=== PATIENT | male | born 1995 | race Two or more races ===

== ENCOUNTER 2019-09-12 14:49 | Emergency (ER) | payer OTHER ==
[2019-09-12 15:08] VITALS: TEMP 98.2; BMI 25.0
[2019-09-12] MEDS ORDERED: FAMOTIDINE 20 MG/50 ML IVPB 20 MG/50 ML MG IVPB ONE ×2 (17:36→17:55)
[2019-09-12] MEDS ORDERED: ONDANSETRON 4 MG/2 ML VIAL IVPUSH ONE ×2 (17:36→19:36)
[2019-09-12] MEDS ORDERED: SODIUM CHLORIDE 0.9% 500 ML INFUS.BAG IV ONE (17:36)
[2019-09-12] MEDS ORDERED: ONDANSETRON 4 MG/2 ML VIAL ONE ×2 (17:54→19:43)
--- NOTE | 2019-09-12 18:04 | PDOC ---
History of Present Illness - General History Source: Patient Exam Limitations: No Limitations - History of Present Illness Initial Comments: 09/12/19 17:57 Patient is a 24 year old male with no pmhx c/o nausea and vomiting since last night. States he has been vomiting all day, with some diarrhea today. Reports that he went out drinking then developed symptoms he also complains of epigastric burning pain which is 10/10, continuous. He has had prior episodes of this type of symptoms after drinking. Also reports that he used marijuana last night. Denies any fever, chills, dysuria. PMHX: As above PSOCHX: (+) MJ, (+) etoh, (+) cig ALL: NKDA GENERAL/CONSTITUTIONAL: [No fever or chills. No weakness. No weight change.] HEAD, EYES, EARS, NOSE AND THROAT: [No change in vision. No ear pain or discharge. No sore throat.] CARDIOVASCULAR: [No chest pain or shortness of breath.] RESPIRATORY: [No cough, wheezing, or hemoptysis.] GASTROINTESTINAL: [(+)nausea, vomiting, (-) diarrhea or constipation. No rectal bleeding.] GENITOURINARY: [No dysuria, frequency, or change in urination.] MUSCULOSKELETAL: [No joint or muscle swelling or pain. No neck or back pain.] SKIN AND BREASTS: [No rash or easy bruising.] NEUROLOGIC: [No headache, vertigo, loss of consciousness, or loss of sensation.] PSYCHIATRIC: [No depression or anxiety.] ENDOCRINE: [No increased thirst. No abnormal weight change.] HEMATOLOGIC/LYMPHATIC: [No anemia, easy bleeding, or history of blood clots.] ALLERGIC/IMMUNOLOGIC: [No hives or skin allergy. No latex allergy.] GENERAL: [The patient is awake, alert, and fully oriented, in acute moderate distress, actively vomiting.] HEAD: [Normal with no signs of trauma.] EYES: [Pupils equal, round and reactive to light, extraocular movements intact, sclera anicteric, conjunctiva clear.] ENT: [Ears normal, nares patent, oropharynx clear without exudates. Moist mucous membranes.] NECK: [Normal range of motion, supple without lymphadenopathy, JVD, or masses.] LUNGS: [Breath sounds equal, clear to auscultation bilaterally. No wheezes, and no crackles.] HEART: [Regular rate and rhythm, normal S1 and S2 without murmur, rub.] ABDOMEN: [Soft, nontender epigastrium, normoactive bowel sounds. No guarding, no rebound. No masses.] EXTREMITIES: [Normal range of motion, no edema. No clubbing or cyanosis. No cords, erythema, or tenderness.] NEUROLOGICAL: [Cranial nerves II through XII grossly intact. Normal speech, normal gait.] PSYCH: [Normal mood, normal affect.] SKIN: [Warm, Dry, normal turgor, no rashes or lesions noted.] <Stuart Dutta - Last Filed: 09/12/19 22:01> <Marlen Mejia - Last Filed: 09/13/19 00:55> - General Chief Complaint: Pain Stated Complaint: PAIN Time Seen by Provider: 09/12/19 17:05 Past History - Past Medical History COPD: No GI Disorders: Yes (GERD) - Psycho Social/Smoking Cessation Hx Smoking History: Never smoked Hx Alcohol Use: No Drug/Substance Use Hx: Yes (mariajuna) <Stuart Dutta - Last Filed: 09/12/19 22:01> <Marlen Mejia - Last Filed: 09/13/19 00:55> - Past Medical History Allergies/Adverse Reactions: Allergies Allergy/AdvReac Type Severity Reaction Status Date / Time lactose Allergy Verified 09/12/19 15:08 Home Medications: Ambulatory Orders NK [No Known Home Medication] 09/12/19 *Physical Exam - Vital Signs Last Vital Signs Temp Pulse Resp BP Pulse Ox 98.2 F 76 19 119/74 99 09/12/19 15:03 09/12/19 15:03 09/12/19 15:03 09/12/19 15:03 09/12/19 15:03 <Stuart Dutta - Last Filed: 09/12/19 22:01> - Vital Signs Last Vital Signs Temp Pulse Resp BP Pulse Ox 98.2 F 76 18 119/74 97 09/12/19 15:03 09/12/19 15:03 09/12/19 21:08 09/12/19 15:03 09/12/19 21:08 <Marlen Mejia - Last Filed: 09/13/19 00:55> ED Treatment Course - LABORATORY CBC & Chemistry Diagram: 09/12/19 17:43 09/12/19 17:43 <Stuart Dutta - Last Filed: 09/12/19 22:01> - LABORATORY CBC & Chemistry Diagram: 09/12/19 17:43 09/12/19 17:43 - ADDITIONAL ORDERS Additional order review: Laboratory Results 09/12/19 09/12/19 19:15 17:43 Sodium 139 Potassium 3.8 Chloride 103 Carbon Dioxide 18 L Anion Gap 18 H BUN 11.5 Creatinine 1.4 H Est GFR (CKD-EPI)AfAm 80.93 Est GFR (CKD-EPI)NonAf 69.82 Random Glucose 124 H Calcium 10.6 H Total Bilirubin 0.5 AST 21 ALT 30 Alkaline Phosphatase 71 Total Protein 8.2 Albumin 4.8 Urine Color Yellow Urine Appearance Clear Urine pH 6.5 Ur Specific [place] 1.028 Urine Protein 2+ H Urine Glucose (UA) Negative Urine Ketones 3+ H Urine Blood Negative Urine Nitrite Negative Urine Bilirubin Negative Urine Urobilinogen 0.2 Ur Leukocyte Esterase Negative Urine WBC (Auto) 1 Urine RBC (Auto) 2 Urine Casts (Auto) 9 U Epithel Cells (Auto) 4.2 U Sm Round Cell (Auto) None seen Urine Bacteria (Auto) 22.5 09/12/19 17:43 RBC 5.54 MCV 87.8 MCHC 33.2 RDW 13.3 MPV 7.7 Neutrophils % 77.8 Lymphocytes % 13.2 Monocytes % 8.3 Eosinophils % 0.1 Basophils % 0.6 - Medications Given in the ED: ED Medications Discontinued Medications Generic Name Dose Route Start Last Admin Trade Name Freq PRN Reason Stop Dose Admin Dicyclomine HCl 20 mg 09/12/19 20:09 09/12/19 20:19 Bentyl Injection - IM 09/12/19 20:10 Not Given ONCE ONE Dicyclomine HCl 20 mg 09/12/19 20:17 09/12/19 20:19 Bentyl - PO 09/12/19 20:18 20 mg ONCE ONE Administration Haloperidol Decanoate 5 mg 09/12/19 21:05 09/12/19 21:07 Haldol IM 09/12/19 21:06 5 mg ONCE ONE Administration Famotidine/Sodium Chloride 20 mg in 50 mls @ 100 mls/hr 09/12/19 17:36 18:00 Pepcid 20 Mg Premixed Ivpb - IVPB 09/12/19 18:05 100 mls/hr ONCE ONE Administration Ketorolac Tromethamine 30 mg 09/12/19 19:20 09/12/19 19:42 Toradol Injection - IVPUSH 09/12/19 19:21 30 mg ONCE ONE Administration Metoclopramide HCl 10 mg 09/12/19 21:23 09/12/19 21:28 Reglan Injection - IVPUSH 09/12/19 21:24 10 mg ONCE ONE Administration Ondansetron HCl 4 mg 09/12/19 17:36 09/12/19 18:00 Zofran Injection IVPUSH 09/12/19 17:37 4 mg ONCE ONE Administration Ondansetron HCl 4 mg 09/12/19 19:36 09/12/19 19:45 Zofran Injection IVPUSH 09/12/19 19:37 4 mg ONCE ONE Administration Sodium Chloride 2,000 ml 09/12/19 17:36 09/12/19 18:00 Normal Saline - IV 09/12/19 17:37 2,000 ml ONCE ONE Administration <Marlen Mejia - Last Filed: 09/13/19 00:55> Medical Decision Making - Medical Decision Making 09/12/19 17:57 Patient is a 24 year old male with no pmhx c/o nausea and vomiting since last night. States he has been vomiting all day. Reports that he went out drinking then developed symptoms he also complains of epigastric burning pain which is 10 /10, continuous. He has had prior episodes of this type of symptoms after drinking. Also reports that he used marijuana last night. Denies any fever, chills, dysuria. Symptoms consistent with gastritis possibly cyclical vomiting syndrome. Labs IV fluid, Pepcid, Zofran. Reassess Patient continues to have nausea no vomiting will give Zofran. Patient requesting something to go to sleep will give Haldol 5 mg IM Patient complaining of nausea returning will give Reglan 10 mg IV. Patient continues on IV fluids. 2130 patient is tolerating p.o. at which point patient pulled out the IV and states that he is leaving. Patient eloped prior to proper discharge. <Stuart Dutta - Last Filed: 09/12/19 22:01> - Medical Decision Making I reviewed the case with the mid-level practitioner and agree with the mid- level practitioner's assessment, diagnosis and disposition. <Marlen Mejia - Last Filed: 09/13/19 00:55> Discharge - Discharge Information Problems reviewed: Yes <Stuart Dutta - Last Filed: 09/12/19 22:01> <Marlen Mejia - Last Filed: 09/13/19 00:55> - Discharge Information Clinical Impression/Diagnosis: Pain Nausea and vomiting Qualifiers: Vomiting type: unspecified Vomiting Intractability: non-intractable Qualified Code(s): R11.2 - Nausea with vomiting, unspecified Diarrhea Qualifiers: Diarrhea type: unspecified type Qualified Code(s): R19.7 - Diarrhea, unspecified Condition: Stable Disposition: ELOPED
[2019-09-12] MEDS ORDERED: KETOROLAC TROMETHAMINE 30 MG/1 ML VIAL IVPUSH ONE (19:20)
[2019-09-12] MEDS ORDERED: KETOROLAC TROMETHAMINE 30 MG/1 ML VIAL ONE (19:34)
[2019-09-12 19:55] LABS: BASO % 0.6 % (0-2.0); EOS % 0.1 % (0-4.5); HEMATOCRIT 48.7 % (35.4-49); HEMOGLOBIN 16.1 GM/dL (11.7-16.9); LYMPH % 13.2 % (8-40); MCH 29.1 pg (25.7-33.7); MCHC 33.2 g/dl (32.0-35.9); MEAN CELL VOLUME 87.8 fl (80-96); MEAN PLT VOLUME 7.7 fl (7.5-11.1); MONO % 8.3 % (3.8-10.2); NEUT % 77.8 % (42.8-82.8); PLATELET COUNT 431 K/MM3 (134-434); RBC 5.54 M/mm3 (4.00-5.60); RDW 13.3 % (11.9-15.9); WHITE BLOOD COUNT 16.5 K/mm3 (4.0-10.0)
[2019-09-12 19:58] LABS: EPI CELLS 4.2 /HPF (0-5/HPF); HYALINE CASTS 9 /lpf (0-8); PH,URINE 6.5 (5.0-8.0); URINE APPEARANCE CLEAR; URINE BACTERIA 22.5 /hpf (NEGATIVE); URINE BILIRUBIN NEGATIVE (NEGATIVE); URINE COLOR YELLOW; URINE GLUCOSE (UA) NEGATIVE (NEGATIVE); URINE KETONE 3+ (NEGATIVE); URINE LEUK ESTERASE NEGATIVE (NEGATIVE); URINE NITRITE NEGATIVE (NEGATIVE); URINE PROTEIN 2+ (NEGATIVE); URINE RBC 2 /hpf (0-4); URINE UROBILINOGEN 0.2 mg/dL (0.2-1.0); URINE WBC 1 /hpf (0-5)
[2019-09-12] MEDS ORDERED: DICYCLOMINE HCL 20 MG/2 ML AMPUL IM ONE (20:09)
[2019-09-12] MEDS ORDERED: DICYCLOMINE HCL 10 MG CAPSULE ONE (20:10)
[2019-09-12 20:14] LABS: ALBUMIN 4.8 g/dl (3.4-5.0); BILIRUBIN,TOTAL 0.5 mg/dL (0.2-1); BLOOD UREA NITROGEN 11.5 mg/dL (7-18); CALCIUM 10.6 mg/dL (8.5-10.1); CREATININE 1.4 mg/dL (0.55-1.3); POTASSIUM 3.8 mmol/L (3.5-5.1); TOT PROT 8.2 g/dl (6.4-8.2)
[2019-09-12] MEDS ORDERED: DICYCLOMINE HCL 20 MG TABLET PO ONE (20:17)
[2019-09-12] MEDS ORDERED: HALOPERIDOL LACTATE 5 MG/ML ONE (21:02)
[2019-09-12] MEDS ORDERED: HALOPERIDOL DECANOATE 500 MG/5ML MDV IM ONE (21:05)
[2019-09-12] MEDS ORDERED: METOCLOPRAMIDE HCL INJECTION 10 MG/2 ML VIAL IVPUSH ONE (21:23)
[2019-09-12] MEDS ORDERED: METOCLOPRAMIDE HCL INJECTION 10 MG/2 ML VIAL ONE (21:26)
== END 2019-09-12 21:48 | disposition left against medical advice (07) ==
LOC: JER 14:49
PROC: 3E023NZ Introduction of Analgesics, Hypnotics, Sedatives into Muscle, Percutaneous Approach (ICD-10-PCS; principal; 2019-09-12)
PROC: 3E033GC Introduction of Other Therapeutic Substance into Peripheral Vein, Percutaneous Approach (ICD-10-PCS; 2019-09-12)
PROC: 3E033GC Introduction of Other Therapeutic Substance into Peripheral Vein, Percutaneous Approach (ICD-10-PCS; 2019-09-12)
PROC: 3E033GC Introduction of Other Therapeutic Substance into Peripheral Vein, Percutaneous Approach (ICD-10-PCS; 2019-09-12)
PROC: 3E0333Z Introduction of Anti-inflammatory into Peripheral Vein, Percutaneous Approach (ICD-10-PCS; 2019-09-12)
DX: K29.70 Gastritis, unspecified, without bleeding (principal)
CPT/HCPCS: 36415; 80053; 81003; 85025; 99282-25

== ENCOUNTER 2021-04-13 13:32 | Emergency (ER) | payer SELFPAY ==
[2021-04-13 13:47] VITALS: BP 119/66; PULSE 105; TEMP 99.4; BMI 26.9
[2021-04-13] MEDS ORDERED: cefTRIAXone SODIUM 1 GM VIAL ONE (14:41)
== END 2021-04-13 15:03 | disposition home or self-care (01) ==
LOC: JER 13:32
PROC: 3E023GC Introduction of Other Therapeutic Substance into Muscle, Percutaneous Approach (ICD-10-PCS; principal; 2021-04-13)
DX: R09.81 Nasal congestion (principal); Z20.2 Contact with and (suspected) exposure to infections with a predominantly sexual mode of transmission
CPT/HCPCS: 36415; 87491; 87591; 99284-25; C9803; U0003; U0005

== ENCOUNTER 2021-04-14 11:07 | Emergency (ER) | payer SELFPAY ==
[2021-04-14 11:51] VITALS: BP 124/74; PULSE 93; TEMP 100; BMI 26.2
[2021-04-14] MEDS ORDERED: CASIRIVIMAB/IMDEVIMAB 10 ML in SODIUM CHLORIDE 100 ML IVPB ONE (11:53)
== END 2021-04-14 18:33 | disposition home or self-care (01) ==
LOC: JER 11:07
DX: U07.1 COVID-19 (principal)
CPT/HCPCS: 99283-25

== ENCOUNTER 2021-04-26 07:52 | Emergency (ER) | payer SELFPAY ==
[2021-04-26 08:00] VITALS: BP 114/72; TEMP 97; BMI 25.0
[2021-04-26] MEDS ORDERED: CEFAZOLIN 1 GM in DEXTROSE 5%-WATER - 50 ML IVPB ONE (09:09)
[2021-04-26] MEDS ORDERED: LIDOCAINE HCL/PF 1% SDV 5ML VIAL ONE (09:12)
[2021-04-26] MEDS ORDERED: CEFAZOLIN 1 GM/D5W 1 GM/50 ML BAG ONE (09:12)
[2021-04-26] MEDS ORDERED: LIDOCAINE HCL 2% (20ML MULTI-DOSE VIAL) ONE (10:18)
[2021-04-26 10:41] VITALS: PULSE 83
== END 2021-04-26 11:00 | disposition home or self-care (01) ==
LOC: JER 07:52
PROC: 3E03329 Introduction of Other Anti-infective into Peripheral Vein, Percutaneous Approach (ICD-10-PCS; principal; 2021-04-26)
PROC: 3E023NZ Introduction of Analgesics, Hypnotics, Sedatives into Muscle, Percutaneous Approach (ICD-10-PCS; 2021-04-26)
DX: S20.211A Contusion of right front wall of thorax, initial encounter (principal); S51.011A Laceration without foreign body of right elbow, initial encounter; S61.412A Laceration without foreign body of left hand, initial encounter; Y09 Assault by unspecified means
CPT/HCPCS: 71250-TC; 73070-TC-RT-FY; 73130-TC-LT-FY; 74176-TC; 99285-25

== ENCOUNTER 2021-10-29 18:56 | Emergency (ER) | payer OTHER ==
[2021-10-29 19:04] VITALS: BP 121/84; PULSE 65; TEMP 98.2; BMI 25.6
[2021-10-29] MEDS ORDERED: KETOROLAC TROMETHAMINE 30 MG/1 ML VIAL IM ONE (19:23)
[2021-10-29] MEDS ORDERED: diazePAM 5 MG TABLET PO ONE (19:23)
[2021-10-29] MEDS ORDERED: diazePAM 5 MG TABLET ONE (19:30)
[2021-10-29] MEDS ORDERED: KETOROLAC TROMETHAMINE 30 MG/1 ML VIAL ONE (19:30)
== END 2021-10-29 19:40 | disposition home or self-care (01) ==
LOC: JER 18:56 → JERFT 18:56
PROC: 3E0233Z Introduction of Anti-inflammatory into Muscle, Percutaneous Approach (ICD-10-PCS; principal; 2021-10-29)
DX: M62.838 Other muscle spasm (principal); V49.40XA Driver injured in collision with unspecified motor vehicles in traffic accident, initial encounter
CPT/HCPCS: 99284-25

== ENCOUNTER 2021-12-04 12:44 | Emergency (ER) | payer OTHER ==
[2021-12-04 13:15] VITALS: BP 123/73; PULSE 87; TEMP 97.7; BMI 24.0
== END 2021-12-04 14:41 | disposition home or self-care (01) ==
LOC: JERFT 12:44
DX: L72.3 Sebaceous cyst (principal)
CPT/HCPCS: 36415; 87070; 87205; 87491; 87591; 99283-25